=== PATIENT | male | born 1995 | race American Indian/Alaskan Native ===

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

== ENCOUNTER 2018-05-28 11:26 | Emergency (ER) | payer BC, MEDICAID ==
[2018-05-28 11:34] VITALS: BMI 18.1
[2018-05-28 11:39] VITALS: TEMP 98.2
--- NOTE | 2018-05-28 11:52 | ED PDOC ---
Arrival/HPI - General Chief Complaint: Hip Pain Time Seen by Provider: 05/28/18 11:34 Historian: Parent (Mother) - History of Present Illness Narrative History of Present Illness (Text): 05/28/18 11:52 A 22 year old male, whose past medical history includes seizure and mentally challenged, presents to the emergency department, accompanied by mother, complaining of left thigh and right hip pain since a few days ago. Patient's m other reports patient normally ambulates with assistance and has a limp but has been indicating left leg discomfort. Patient's mother states patient did not fall or have any reports of a fall from school. Mother states patient has taken Tylenol to no relief. Patient denies any fever, shortness of breath, chest pain, or any other complaints. PMD: Alley Marx Time/Duration: Other (a few days) Symptom Onset: Gradual Symptom Course: Unchanged Activities at Onset: Light Context: Home Past Medical History - Provider Review Nursing Documentation Reviewed: Yes - Infectious Disease Hx of Infectious Diseases: None - Cardiac Hx Cardiac Disorders: No - Pulmonary Hx Respiratory Disorders: No - Neurological Hx Neurological Disorder: (CEREBRAL PALSY) Hx Seizures: Yes Other/Comment: VNS stimulator on chest - HEENT Hx HEENT Disorder: No Other/Comment: Non verbal - Renal Hx Renal Disorder: No - Endocrine/Metabolic Hx Endocrine Disorders: No - Hematological/Oncological Hx Blood Disorders: No - Integumentary Hx Dermatological Disorder: No - Musculoskeletal/Rheumatological Hx Falls: No Other/Comment: SCOLLIOSIS - Gastrointestinal Hx Gastrointestinal Disorders: No - Genitourinary/Gynecological Hx Genitourinary Disorders: No - Psychiatric Hx Psychophysiologic Disorder: No Hx Substance Use: No - Surgical History Other/Comment: back surgery with 2 rods - Anesthesia Hx Anesthesia: Yes Hx Anesthesia Reactions: No Hx Malignant Hyperthermia: No Family/Social History - Physician Review Nursing Documentation Reviewed: Yes Family/Social History: No Known Family HX Smoking Status: Never Smoked Hx Alcohol Use: No Hx Substance Use: No Allergies/Home Meds Allergies/Adverse Reactions: Allergies No Known Allergies Allergy (Verified 12/31/16 18:23) Home Medications: Home Meds Medication Instructions Recorded Confirmed Lacosamide [Vimpat] 200 mg PO BID 11/15/15 11/16/15 Review of Systems - Physician Review All systems were reviewed & negative as marked: Yes - Review of Systems Constitutional: absent: Fevers Respiratory: absent: SOB Cardiovascular: absent: Chest Pain Musculoskeletal: Other (left thigh discomfort) Physical Exam Vital Signs Reviewed: Yes Vital Signs Temp Pulse Resp BP Pulse Ox 05/28/18 11:27 98.2 F 91 H 18 141/71 100 Temperature: Afebrile Blood Pressure: Normal Pulse: Tachycardic Appearance: Positive for: Well-Appearing, Non-Toxic Pain Distress: None - Systems Exam Lower Extremity: Present: Other. No: Edema, NORMAL PULSES, Normal ROM (internal and external rotation was uncomfortable for patient in right leg), Tenderness (no tenderness to palpation to both legs) Neurological: No: Gait Normal (walking favoring the left side; normally walks with a limp) Skin: Present: Warm, Dry, Normal Color. No: Rashes Medical Decision Making ED Course and Treatment: 05/28/18 11:55 Impression: 22 year old male presenting to the emergency room complaining left thigh pain and right hip pain. Plan: -- Xray of bilateral femur -- Xray of hip with pelvis bilaterally -- Reassess and disposition Prior Visits: Notes and results from previous visits were reviewed. Patient was last seen in the emergency department on on 12/31/16 for a possible lower extremity injury and was discharged when symptoms stablized with a ibuprofen and a follow up appointment with orthopedics. Progress Notes: 05/28/18 13:26 Procedure: Xray of femurs bilaterally Dictator: Kike Gauthier MD Impression: Normal radiographs of the femurs Procedure: Hip/Pelvis Xray Dictator: Kike Gauthier MD Impression: Right hip dysplasia unchanged. 05/28/18 13:27 Spoke to Mother about xray results and advised to use motrin, which mother states they have at home. Patient will be ready for discharge. - Scribe Statement The provider has reviewed the documentation as recorded by the Red White All medical record entries made by the Scribe were at my direction and personally dictated by me. I have reviewed the chart and agree that the record accurately reflects my personal performance of the history, physical exam, medical decision making, and the department course for this patient. I have also personally directed, reviewed, and agree with the discharge instructions and disposition. Disposition/Present on Arrival - Present on Arrival Any Indicators Present on Arrival: No History of DVT/PE: No History of Uncontrolled Diabetes: No Urinary Catheter: No History of Decub. Ulcer: No History Surgical Site Infection Following: None - Disposition Have Diagnosis and Disposition been Completed?: Yes Diagnosis: Hip pain, Subluxation of right hip Disposition: HOME/ ROUTINE Disposition Time: 13:28 Patient Plan: Discharge Condition: STABLE Discharge Instructions (ExitCare): Hip Pain (DC) Additional Instructions: KENDALL HAND, thank you for letting us take care of you today. Your provider was Jen George MD and you were treated for HIPS. The emergency medical care you received today was directed at your acute symptoms. If you were prescribed any medication, please fill it and take as directed. It may take several days for your symptoms to resolve. Return to the Emergency Department if your symptoms worsen, do not improve, or if you have any other problems. Please contact your doctor in 2 days for a follow up appointment. Bring any paperwork you were given at discharge with you along with any medications you are taking to your follow up visit. Our treatment cannot replace ongoing medical care by a primary care provider outside of the emergency department. Thank you for allowing the [facility] team to be part of your care today. Forms: [employer] (Bermudian)
--- NOTE | 2018-05-28 13:08 | RAD ---
Date of service: 05/28/2018 PROCEDURE: Radiographs of the bilateral femurs. HISTORY: pain COMPARISON: None. FINDINGS: BONES: Right Femur: Normal. No fracture. Left Femur: Normal. No fracture. SOFT TISSUES: Right Femur: Normal. Left Femur: Normal. OTHER FINDINGS: None. IMPRESSION: Normal radiographs of the femurs.
--- NOTE | 2018-05-28 13:10 | RAD ---
Date of service: 05/28/2018 PROCEDURE: Pelvis and both hips HISTORY: pain COMPARISON: 12/31/2016 TECHNIQUE: Two views FINDINGS: There is dysplasia of the right hip and acetabulum with superior and lateral subluxation of the femoral head. No acute findings. The left hip is unremarkable IMPRESSION: Right hip dysplasia unchanged
[2018-05-28 13:53] VITALS: BP 137/70; PULSE 89; RESP 20; O2SAT 99
== END 2018-05-28 13:52 | disposition home or self-care (01) ==
LOC: ED 11:26
DX: S73.001A Unspecified subluxation of right hip, initial encounter (principal); X58.XXXA Exposure to other specified factors, initial encounter; M25.551 Pain in right hip